=== PATIENT | female | born 1995 | race Caucasian/White ===

== ENCOUNTER 2018-01-29 00:43 | Emergency (ER) | payer BC, MEDICAID ==
[2018-01-29] MEDS: ACETAMINOPHEN 325 MG TAB PO (03:23)
[2018-01-29] MEDS: KETOROLAC 30 MG INJ IM (03:30)
== END 2018-01-29 04:28 | disposition home or self-care (01) ==
LOC: FTE 00:43
DX: S33.5XXA Sprain of ligaments of lumbar spine, initial encounter (principal); S09.93XA Unspecified injury of face, initial encounter; X50.9XXA Other and unspecified overexertion or strenuous movements or postures, initial encounter; Y92.89 Other specified places as the place of occurrence of the external cause
CPT/HCPCS: 81025; 96372; 99284-25